=== PATIENT | male | born 1975 | race Caucasian/White ===

== ENCOUNTER 2020-12-25 05:57 | Observation (INO) | payer BC, OTHER ==
[~2020-12-25] VITALS: Ht 175.3 cm; Wt 109.6 kg
[2020-12-25] MEDS ORDERED: NS 1,000 ML IV ONE ×2 (06:25→09:25)
[2020-12-25] MEDS ORDERED: ONDANSETRON 4MG/2ML VIAL IV ONE ×2 (06:25→10:55)
[2020-12-25] MEDS ORDERED: KETOROLAC 30 MG/ML 1ML VIAL IV ONE (06:25)
[2020-12-25 06:53] LABS: BASO % 0.2 % (0.0-1.0); EOS # 0.2 10^3/uL (0.0-0.5); EOS % 1.6 % (0.0-3.0); HEMATOCRIT 43.7 % (42.0-52.0); HEMOGLOBIN 14.3 g/dl (13.5-17.5); LYMPH # 1.8 10^3/uL (1.5-5.0); LYMPH % 18.9 % (24.0-44.0); MEAN CORPUSCULAR HEMOGLOBIN 28.3 pg (27.0-33.0); MEAN CORPUSCULAR HGB CONC 32.7 g/dl (32.0-36.5); MEAN CORPUSCULAR VOLUME 86.5 fl (80.0-96.0); MONO # 0.9 10^3/uL (0.0-0.8); MONO % 9.6 % (2.0-8.0); NEUTROPHILS # 6.6 10^3/uL (1.5-8.5); NEUTROPHILS % 69.4 % (36.0-66.0); PLATELET COUNT, AUTOMATED 251 10^3/uL (150-450); RED BLOOD COUNT 5.05 10^6/uL (4.30-6.10); WHITE BLOOD COUNT 9.5 10^3/uL (4.0-10.0)
--- NOTE | 2020-12-25 07:10 | REPVR ---
PROCEDURE INFORMATION: Exam: CT Abdomen And Pelvis Without Contrast Exam date and time: 12/25/2020 6:22 AM Age: 45 years old Clinical indication: Abdominal pain; Flank; Right; Additional info: R flank pain TECHNIQUE: Imaging protocol: Computed tomography of the abdomen and pelvis without contrast. Radiation optimization: All CT scans at this facility use at least one of these dose optimization techniques: automated exposure control; mA and/or kV adjustment per patient size (includes targeted exams where dose is matched to clinical indication); or iterative reconstruction. COMPARISON: No relevant prior studies available. FINDINGS: Liver: Normal. No mass. Gallbladder and bile ducts: Normal. No calcified stones. No ductal dilation. Pancreas: Normal. No ductal dilation. Spleen: Normal. No splenomegaly. Adrenal glands: Normal. No mass. Kidneys and ureters: There is 5-6 mm right UPJ obstructing stone with mild proximal hydronephrosis. There is 3 mm left renal stone and a punctate 1 mm left upper renal pole stone. There is no left ureteral stone or hydronephrosis. Stomach and bowel: Unremarkable. No obstruction. No mucosal thickening. Appendix: No evidence of appendicitis. Intraperitoneal space: Unremarkable. No free air. No significant fluid collection. Vasculature: Unremarkable. No abdominal aortic aneurysm. Lymph nodes: Unremarkable. No enlarged lymph nodes. Urinary bladder: The urinary bladder is collapsed limiting its evaluation. Reproductive: Unremarkable as visualized. Bones/joints: Unremarkable. No acute fracture. Soft tissues: There is small left inguinal fat containing hernia. IMPRESSION: 1. 5-6 mm right UPJ obstructing stone with mild proximal hydronephrosis. 2. Nonobstructing left nephrolithiasis. 3. Small left inguinal fat containing hernia. Electronically signed by: Angel Luo On 12/25/2020 07:09:28 AM
[2020-12-25 07:12] LABS: ALBUMIN 3.7 GM/DL (3.2-5.2); ALT/SGPT 74 U/L (12-78); BILIRUBIN,DIRECT 0.1 MG/DL (0.0-0.2); BILIRUBIN,TOTAL 0.3 MG/DL (0.2-1.0); BLOOD UREA NITROGEN 15 MG/DL (7-18); CALCIUM LEVEL 8.5 MG/DL (8.5-10.1); CARBON DIOXIDE LEVEL 28 MEQ/L (21-32); CHLORIDE LEVEL 102 MEQ/L (98-107); CREATININE FOR GFR 1.18 MG/DL (0.70-1.30); GLOMERULAR FILTRATION RATE > 60.0 (>60); GLUCOSE, FASTING 217 MG/DL (70-100); LIPASE 97 U/L (73-393); SODIUM LEVEL 137 MEQ/L (136-145); TOTAL PROTEIN 7.5 GM/DL (6.4-8.2)
[2020-12-25] MEDS ORDERED: MORPHINE 4 MG/ML 1ML VIAL/SYRINGE (J2270) IV ONE ×2 (07:25→10:55)
[2020-12-25] MEDS ORDERED: METOCLOPRAMIDE INJ 10MG/2ML VIAL (J2765 PER 1) IV ONE (07:55)
[2020-12-25] MEDS ORDERED: fentaNYL 100 MCG/2 ML INJECTION (J3010) IV ONE (09:25)
[2020-12-25 11:27] LABS: RSV AMPLIFICATION NEGATIVE (NEGATIVE)
[2020-12-25] MEDS ORDERED: IBUP1TAB6 PO (11:34)
[2020-12-25] MEDS ORDERED: CYCL-707 PO (11:34)
[2020-12-25] MEDS ORDERED: NS 1,000 ML IV SCH (12:20)
[2020-12-25] MEDS ORDERED: GLUCOSE 4GM CHEW TABLET PO PRN (13:20)
[2020-12-25] MEDS ORDERED: GLUCAGON INJ 1MG VIAL SC PRN (13:20)
[2020-12-25] MEDS ORDERED: DEXTROSE 50% 50 ML SYRINGE IV PRN (13:20)
--- NOTE | 2020-12-25 13:33 | HPEPDOC ---
[facility] Medical History & Physical Date of Admission Dec 25, 2020 Date of Service: Dec 25, 2020 Attending Physician: JOSSELYN DONG MD History and Physical CHIEF COMPLAINT: Right flank pain HISTORY OF PRESENT ILLNESS: Patient is a 45 year old male with a past medical history significant for nephrolithiasis otherwise no known significant past medical history who presented to the [facility] ER with complaint of right flank pain. Patient stated that yesterday he was shopping at the mall in [place]. He had eaten some [employer] and while walking around the mall had developed some pressure feeling in his back. He then walked to his car and started to drive back to [place]. He stated that he then had worsening cramping feeling in his right flank. He pulled over in [place] and got out of his car to walk around. He stated that helped the pain. He noticed some kids playing basketball and joined in. He stated that the pain was essentially gone until around 0400hrs. He stated that he awoke from sleep with a sharp ache in his right side. He developed nausea and vomiting as well. There was no position that really made his pain worse. He denied any difficulty with urination. He denied any blood in his urine. He presented to the ED for further evaluation In the ED the patient was vitally stable although hypertensive. He stated that he was in pain and was given Fentanyl, Morphine, and Toradol. He received CT imaging of the abdomen and pelvis which demonstrated a 5-6mm right UPJ obstructing stone with mild hydronephrosis. Imaging and report were reviewed. Urology was contacted through the ER and the patient was scheduled for OR at 1800hrs. Patient was admitted to hospitalist service for further evaluation and management PAST MEDICAL HISTORY: 1. Nephrolithiasis 2. IBS PAST SURGICAL HISTORY: 1. Right inguinal hernia repair 2. Right great toe toenail removal 3. Colonoscopy in 2006 for IBS SOCIAL HISTORY: Lives at home with his mom whom he helps care for. He is independent with ADLs. He is a non-smoker although states he may smoke a ciagarette during social situations. He uses alcohol socially. He denies IV or illicit drug use FAMILY HISTORY: Patient is adopted. He has 7-8 siblings from his biological parents. He is unsure of their medical history but states all are alive ALLERGIES: Please see below. REVIEW OF SYSTEMS: CONSTITUTIONAL: Denies fevers, chills, unintentional weight loss or weight gain. Denies night sweats HEENT: Denies dysphagia, odynophagia CARDIOVASCULAR: Denies chest pain, palpitations, or feelings of the heart racing RESPIRATORY: Denies shortness of breath. Denies cough GASTROINTESTINAL: Denies abdominal pain. Admits to right flank pain. Denies d iarrhea or constipation. Admits to nausea and vomiting GENITOURINARY: Denies dysuria or increased frequency. Denies hematuria SKIN: Denies rashes or lesions MUSCULOSKELETAL: Admits to right flank pain. Denies any back or neck pain NEUROLOGICAL: Denies changes in gait or speech PSYCHIATRIC: Denies depression or anxiety ENDOCRINE: Denies heat intolerance, cold intolerance. Denies history of diabetes HEMATOLOGIC/LYMPHATIC: Denies easy bruising or bleeding. Denies history of DVT or PE HOME MEDICATIONS: Please see below. PHYSICAL EXAMINATION: VITAL SIGNS: Temperature 98.3, pulse 65, respiratory rate 20, blood pressure 154/86, pulse oximetry 98% on room air. GENERAL APPEARANCE: Awake, alert, and oriented. Appears in no acute distress. Lying comfortably in bed although intermittently in colicky pain. Appears in no acute distress HEENT: Atraumatic, normocephalic. Eyes are nonicteric. Trachea is midline. Mucous membranes are pink and moist CARDIOVASCULAR: Normal S1. S2. Regular rate and rhythm. No clicks rubs or murmurs LUNGS: Clear vesicular breath sounds bilaterally. No wheezes, rhonchi, or rales. Symmetric chest expansion. ABDOMEN: Soft, nondistended. Nontender. Normoactive bowel sounds throughout EXTREMITIES: No edema. Full and equal pulses in bilateral upper and lower extremities NEUROLOGICAL: No focal neurological deficits PSYCHIATRIC: Mood and affect appear appropriate LABORATORY DATA: See below. IMAGING: PROCEDURE INFORMATION: Exam: CT Abdomen And Pelvis Without Contrast Exam date and time: 12/25/2020 6:22 AM Age: 45 years old Clinical indication: Abdominal pain; Flank; Right; Additional info: R flank pain TECHNIQUE: Imaging protocol: Computed tomography of the abdomen and pelvis without contrast. Radiation optimization: All CT scans at this facility use at least one of these dose optimization techniques: automated exposure control; mA and/or kV adjustment per patient size (includes targeted exams where dose is matched to clinical indication); or iterative reconstruction. COMPARISON: No relevant prior studies available. FINDINGS: Liver: Normal. No mass. Gallbladder and bile ducts: Normal. No calcified stones. No ductal dilation. Pancreas: Normal. No ductal dilation. Spleen: Normal. No splenomegaly. Adrenal glands: Normal. No mass. Kidneys and ureters: There is 5-6 mm right UPJ obstructing stone with mild proximal hydronephrosis. There is 3 mm left renal stone and a punctate 1 mm left upper renal pole stone. There is no left ureteral stone or hydronephrosis. Stomach and bowel: Unremarkable. No obstruction. No mucosal thickening. Appendix: No evidence of appendicitis. Intraperitoneal space: Unremarkable. No free air. No significant fluid collection. Vasculature: Unremarkable. No abdominal aortic aneurysm. Lymph nodes: Unremarkable. No enlarged lymph nodes. Urinary bladder: The urinary bladder is collapsed limiting its evaluation. Reproductive: Unremarkable as visualized. Bones/joints: Unremarkable. No acute fracture. Soft tissues: There is small left inguinal fat containing hernia. IMPRESSION: 1. 5-6 mm right UPJ obstructing stone with mild proximal hydronephrosis. 2. Nonobstructing left nephrolithiasis. 3. Small left inguinal fat containing hernia. Electronically signed by: Angel Luo On 12/25/2020 07:09:28 AM MICROBIOLOGY: Please see below. ASSESSMENT: Patient is a 45 year old male with a past medical history significant for nephrolithiasis who is otherwise healthy and presented to the [facility] ER with complaint of right flank pain. CT imaging demonstrated a right 5-6 m m UPJ obstructing stone with mild hydronephrosis. Urology was contacted through ED and patient was scheduled in OR . PLAN: 1. Right UPJ Stone -Patient presenting with right flank pain. CT imaging demonstrating a right obstructing UPJ stone measuring 5-6 mm. U/A demonstrating microscopic hematuria. -Urology contacted through ED. Plan for lithotripsy today. Patient scheduled in OR at 1800hrs. -Patient denies any history of CLEO or issues with anesthesia in the past. He can achieve over 4METs. He is otherwise medically optimized for his procedure at this point -Remain NPO for test procedure. Will resume diet after patients procedure. Finger sticks q6h until transitioned to diet at which point FS can be discontinued -Will start morphine IV for pain management. Zofran for nausea and vomiting -Will continue IV fluids 2. Elevated BP -Patient denies history of hypertension although unclear if he actually follows with a primary care provider. -Likely secondary to pain. Patient is receiving IV morphine. He is planned to go to OR and will likely receive anesthetics. Will hold off on treating BP directly at this point 3. DVT prophylaxis -TEDs and Sequentials now. Heparin SQ once procedure is finished Disposition: OR today at 1800; NPO for now and continued pain control. Likely discharge tomorrow morning Vital Signs Vital Signs Date Time Temp Pulse Resp B/P (MAP) Pulse Ox O2 Delivery O2 Flow Rate FiO2 12/25/20 11:11 16 96 Room Air 12/25/20 07:52 98 12/25/20 07:23 98.3 65 154/86 (108) Laboratory Data Labs 24H Laboratory Tests 2 12/25/20 06:23: Immature Granulocyte % (Auto) 0.3, Neutrophils (%) (Auto) 69.4H, Lymphocytes (%) (Auto) 18.9L, Monocytes (%) (Auto) 9.6H, Eosinophils (%) (Auto) 1.6, Basophils (%) (Auto) 0.2, Neutrophils # (Auto) 6.6, Lymphocytes # (Auto) 1.8, Monocytes # (Auto) 0.9H, Eosinophils # (Auto) 0.2, Basophils # (Auto) 0.0, Nucleated Red Blood Cells % (auto) 0.0, Anion Gap 7L, Glomerular Filtration Rate > 60.0, Calci um Level 8.5, Total Bilirubin 0.3, Direct Bilirubin 0.1, Aspartate Amino Transf (AST/SGOT) 31, Alanine Aminotransferase (ALT/SGPT) 74, Alkaline Phosphatase 125H, Total Protein 7.5, Albumin 3.7, Albumin/Globulin Ratio 1.0, Lipase 97 12/25/20 06:29: Urine Color YELLOW, Urine Appearance CLOUDYH, Urine pH 5.0, Urine Specific Mary D 1.024, Urine Protein 2+H, Urine Glucose (UA) NEGATIVE, Urine Ketones NEGATIVE, Urine Blood 3+H, Urine Nitrite NEGATIVE, Urine Bilirubin NEGATIVE, Ur ine Urobilinogen 0.2, Urine Leukocyte Esterase NEGATIVE, Urine WBC (Auto) 1, Urine RBC (Auto) TNTCH, Urine Hyaline Casts (Auto) 0, Urine Bacteria (Auto) NEGATIVE, Urine Squamous Epithelial Cells 0, Urine Mucus (Auto) SMALL, Urine Yeast-Like Cells (Auto) SMALLH, Urine Sperm (Auto) 12/25/20 09:35: Coronavirus (COVID-19)(PCR) NEGATIVE, Influenza Type A (RT-PCR) NEGATIVE, Influenza Type B (RT-PCR) NEGATIVE, Respiratory Syncytial Virus (PCR) NEGATIVE CBC/BMP Laboratory Tests 12/25/20 06:23 Home Medications Scheduled PRN Cyclobenzaprine HCl (Cyclobenzaprine HCl) 10 Mg Tablet, 10 MG PO TID PRN for MUSCLE SPASMS Ibuprofen (Ibuprofen) 600 Mg Tablet, 600 MG PO Q6H PRN for PAIN Allergies Coded Allergies: bupropion (Verified Allergy, Intermediate, 12/25/20) clindamycin (Verified Allergy, Intermediate, 12/25/20) codeine (Verified Adverse Reaction, Mild, VOMITTING, 12/25/20) A-FIB/CHADSVASC A-FIB History Current/History of A-Fib/PAF?: No GME ATTESTATION GME ATTESTATION My faculty preceptor for this patient encounter was physically present during the encounter and was fully available. All aspects of the patient interview, examination, medical decision making process, and medical care plan development were reviewed and approved by the faculty preceptor. The faculty preceptor is aware and concurs with the plan as stated in the body of this note and will attest to such by his/her cosignature. TESFAYE CISNEROS DO Dec 25, 2020 13:33
--- NOTE | 2020-12-25 16:12 | SMCUROLCON ---
Urology Consultation General Date of Consultation 12/25/20 Reason For Consultation This patient is seen for Jreteropelvis Junction Obstruction. History of Present Illness This is a 45 y/o M w/ a PMH significant for IBS and kidney stones who presented to the ER this morning w/ severe R flank pain and nausea. A CT obtained in the ER was notable for moderate R hydronephrosis 2/2 an obstructing 6mm R UPJ stone. Despite multiple doses of IV pain medication in the ER, the patient's pain has not been controlled. He was therefore admitted for pain control w/ the plan to take him to the OR today for treatment. He denies dysuria or hematuria. He denies f/c/ns. He has passed a kidney stone previously but has never required surgery. Past Medical History Medical History see HPI Surgical Hstory R inguinal hernia repair Medications Current Medications Current Medications Medications (Trade) Dose Ordered Sig/Cass Route PRN Reason Start Time Stop Time Status Last Admin Dose Admin Dextrose (Dextrose 50%) 25 ml ASDIRECTED PRN IV SEE LABEL COMMENTS 12/25/20 13:20 Glucagon (Glucagon) 1 mg ASDIRECTED PRN SC SEE LABEL COMMENTS 12/25/20 13:20 Glucose (Glucose) 16 GM ASDIRECTED PRN PO SEE LABEL COMMENTS 12/25/20 13:20 Home Med (Med Rec Complete!) ASDIRECTED XX 12/25/20 11:35 12/25/20 11:35 DC Morphine Sulfate (Morphine Sulfate Inj) 3 mg Q3HP PRN IV SEVERE PAIN (PS 8-10) 12/25/20 12:20 Ondansetron HCl (ZOFRAN INJection) 4 mg Q6HP PRN IV NAUSEA OR VOMITING 12/25/20 12:20 Sodium Chloride 1,000 ml @ 70 mls/hr [id number] IV 12/25/20 12:20 12/25/20 13:39 Allergies Allergies: Coded Allergies: bupropion (Verified Allergy, Intermediate, 12/25/20) clindamycin (Verified Allergy, Intermediate, 12/25/20) codeine (Verified Adverse Reaction, Mild, VOMITTING, 12/25/20) Review of Systems Constitutional: Denies: Fever, Chills, Sweats, Weakness, Malaise, Other Skin: Denies: Rash, Lesions, Breakdown, Nail Changes Pulmonary: Denies: Dyspnea, Cough Cardiovascular: Denies Chest Pain, Denies Palpitations Gastrointestinal: Reports: Nausea; Denies: Vomiting Genitourinary: Denies: Dysuria, Frequency, Incontinence, Hematuria Musculoskeletal: Reports: Back Pain (R flank pain) Neurological: Denies: Weakness, Numbness, Incoordination, Change in Speech Psych: Reports: Mood Normal Physical Examination General Exam: Alert, Cooperative, No Acute Distress Chest Exam: Normal air movement Heart Exam: Rate Normal Abdomen Exam: Soft Skin Exam: Nl turgor and temperature Neuro Exam: Normal Speech Psych Exam: Mental status NL, Mood NL Vital Signs/I&O Vital Signs Date Time Temp Pulse Resp B/P (MAP) Pulse Ox O2 Delivery O2 Flow Rate FiO2 12/25/20 13:30 97.8 60 16 131/86 (101) 95 Room Air 12/25/20 07:52 98 Laboratory Data 24H Labs Laboratory Tests 2 12/25/20 06:23: Immature Granulocyte % (Auto) 0.3, Neutrophils (%) (Auto) 69.4H, Lymphocytes (%) (Auto) 18.9L, Monocytes (%) (Auto) 9.6H, Eosinophils (%) (Auto) 1.6, Basophils (%) (Auto) 0.2, Neutrophils # (Auto) 6.6, Lymphocytes # (Auto) 1.8, Monocytes # (Auto) 0.9H, Eosinophils # (Auto) 0.2, Basophils # (Auto) 0.0, Nucleated Red Blood Cells % (auto) 0.0, Anion Gap 7L, Glomerular Filtration Rate > 60.0, Calcium Level 8.5, Total Bilirubin 0.3, Direct Bilirubin 0.1, Aspartate Amino Tr ansf (AST/SGOT) 31, Alanine Aminotransferase (ALT/SGPT) 74, Alkaline Phosphatase 125H, Total Protein 7.5, Albumin 3.7, Albumin/Globulin Ratio 1.0, Lipase 97 12/25/20 06:29: Urine Color YELLOW, Urine Appearance CLOUDYH, Urine pH 5.0, Urine Specific Clarissa 1.024, Urine Protein 2+H, Urine Glucose (UA) NEGATIVE, Urine Ketones NEGATIVE, Urine Blood 3+H, Urine Nitrite NEGATIVE, Urine Bilirubin NEGATIVE, Urine Urobilinogen 0.2, Urine Leukocyte Esterase NEGATIVE, Urine WBC (Auto) 1, Urine RBC (Auto) TNTCH, Urine Hyaline Casts (Auto) 0, Urine Bacteria (Auto) NEGATIVE, Urine Squamous Epithelial Cells 0, Urine Mucus (Auto) SMALL, Urine Yeast-Like Cells (Auto) SMALLH, Urine Sperm (Auto) 12/25/20 09:35: Coronavirus (COVID-19)(PCR) NEGATIVE, Influenza Type A (RT-PCR) NEGATIVE, Influenza Type B (RT-PCR) NEGATIVE, Respiratory Syncytial Virus (PCR) NEGATIVE CBC/BMP Laboratory Tests 12/25/20 06:23 Assessment This is a 45 y/o M w/ intractable pain 2/2 an obstructing 6mm R UPJ stone. I recommended that we take him to the OR today for a cystoscopy, R ureteroscopy w/ laser lithotripsy, and R ureteral stent placement. After a discussion of the risks and benefits of surgery, informed consent was signed. Plan - informed consent signed for cystoscopy, R ureteroscopy w/ laser lithotripsy, and R ureteral stent placement - ancef OCOR - NPO - ok to discharge home postop if patient's pain is better controlled JULI PRATHER MD Dec 25, 2020 14:57
[2020-12-25] MEDS ORDERED: ceFAZolin SOD 2 GM in IV 1 EA IV ONE (16:15)
[2020-12-25] MEDS ORDERED: fentaNYL 100 MCG/2 ML INJECTION (J3010) As Ordered ONE (16:55)
[2020-12-25] MEDS ORDERED: MIDAZOLAM INJ 2MG/2ML VIAL (J2250 PER 1MG) As Ordered ONE (16:55)
[2020-12-25] MEDS ORDERED: LIDOCAINE 2% 100MG/5ML SDV (FOR ANES.) As Ordered ONE (16:55)
[2020-12-25] MEDS ORDERED: propofoL 200 MG/20 ML VIAL As Ordered ONE (16:55)
[2020-12-25] MEDS ORDERED: CONRAY-60 60% 50ML VIAL (Q9961) As Ordered ONE (17:02)
[2020-12-25] MEDS ORDERED: ceFAZolin 2 GM/D5W 50 ML IV BAG (J0690 PER 500MG) As Ordered ONE (17:32)
[2020-12-25] MEDS ORDERED: ONDANSETRON 4MG/2ML VIAL As Ordered ONE (17:40)
[2020-12-25] MEDS ORDERED: dexameTHASONE 4 MG/ML 1ML VIAL (J1100 PER 1MG) As Ordered ONE (17:40)
[2020-12-25] MEDS ORDERED: KETOROLAC 60MG 2ML VIAL As Ordered ONE (17:40)
--- NOTE | 2020-12-25 18:55 | REP ---
INDICATION: RIGHT STONE. COMPARISON: None. TECHNIQUE: Two C-arm views abdomen and pelvis. FINDINGS: There is placement of right ureteral stent. The proximal end is coiled in the region the right renal pelvis and the distal end is coiled in the region of the urinary bladder. Contrast partially opacifies the right pelvocaliceal system. IMPRESSION: 57 seconds of fluoroscopy time was utilized. <Electronically signed by Giovanni Gregorio > 12/25/20 [id number]
[2020-12-25] MEDS ORDERED: oxyCODONE 5MG TAB PO PRN (19:15)
[2020-12-25] MEDS ORDERED: LR 1,000 ML IV SCH (19:15)
[2020-12-25] MEDS ORDERED: oxyBUTYnin 5 MG TAB PO STA (19:18)
[2020-12-25] MEDS ORDERED: PERCOCET 5MG/325MG TAB PO PRN (19:20)
[2020-12-25] MEDS ORDERED: ACETAMINOPHEN TAB 650MG DOSE (2X325MG) PO PRN (19:20)
[2020-12-25] MEDS: fentaNYL 100 MCG/2 ML INJECTION (J3010) IV PRN ×2 (19:29→19:34)
[2020-12-25 20:20] VITALS: BP 138/88
[2020-12-25] MEDS: MORPHINE 4 MG/ML 1ML VIAL/SYRINGE (J2270) IV PRN (20:35)
[2020-12-25] MEDS: ONDANSETRON 4MG/2ML VIAL IV PRN (20:35)
[2020-12-25 21:50] VITALS: BP 140/90
[2020-12-25 22:50] VITALS: BP 139/89
[2020-12-25 23:50] VITALS: BP 157/92
[2020-12-26 00:50] VITALS: BP 144/88
[2020-12-26] MEDS: MORPHINE 4 MG/ML 1ML VIAL/SYRINGE (J2270) IV PRN (05:23)
[2020-12-26] MEDS: ONDANSETRON 4MG/2ML VIAL IV PRN (05:23)
[2020-12-26 06:00] VITALS: BP 166/90
[2020-12-26 06:49] LABS: HEMOGLOBIN 13.2 g/dl (13.5-17.5); MEAN CORPUSCULAR HEMOGLOBIN 28.5 pg (27.0-33.0); MEAN CORPUSCULAR VOLUME 86.4 fl (80.0-96.0); PLATELET COUNT, AUTOMATED 272 10^3/uL (150-450); RED BLOOD COUNT 4.63 10^6/uL (4.30-6.10); WHITE BLOOD COUNT 16.6 10^3/uL (4.0-10.0)
[2020-12-26 07:12] LABS: CALCIUM LEVEL 8.3 MG/DL (8.5-10.1); CREATININE FOR GFR 1.66 MG/DL (0.70-1.30); GLOMERULAR FILTRATION RATE 47.5 (>60); POTASSIUM SERUM 4.6 MEQ/L (3.5-5.1)
[2020-12-26] MEDS ORDERED: NS 1,000 ML IV SCH (07:20)
[2020-12-26] MEDS ORDERED: oxyBUTYnin 5 MG TAB PO PRN (09:10)
--- NOTE | 2020-12-26 09:23 | IPNPDOC ---
Subjective Review oF Systems Chief Complaint The patient is a 45-year-old male admitted with a reason for visit of Jreteropelvis Junction Obstruction. Events since Last Encounter Patient notes his R flank pain is better. He is mainly bothered by suprapubic pressure that is worsened w/ voiding. Denies n/v. No f/c/ns. Objective Physical Examination General Exam: Alert, Cooperative, No Acute Distress ABDOMEN EXAM: Soft; No: Tenderness Skin Exam: Nl turgor and temperature Neuro Exam: Normal Speech Psych Exam: Mental status NL, Mood NL Vital Signs/I&O Vital Signs Date Time Temp Pulse Resp B/P (MAP) Pulse Ox O2 Delivery O2 Flow Rate FiO2 12/26/20 06:00 97.5 65 15 166/90 (115) 94 Room Air 12/26/20 01:12 1.0 12/25/20 19:34 98 I&O- Last 24 Hours up to 6 AM 12/26/20 06:00 Intake Total 4080 ml Output Total 590 ml Balance 3490 ml Laboratory Data Labs 24H Laboratory Tests 2 12/25/20 09:35: Coronavirus (COVID-19)(PCR) NEGATIVE, Influenza Type A (RT-PCR) NEGATIVE, Influenza Type B (RT-PCR) NEGATIVE, Respiratory Syncytial Virus (PCR) NEGATIVE 12/25/20 18:01: 12/26/20 06:08: Nucleated Red Blood Cells % (auto) 0.0, Anion Gap 7L, Glomerular Filtration Rate 47.5L, Calcium Level 8.3L CBC/BMP Laboratory Tests 12/26/20 06:08 Assessment/Plan Date Seen The patient was seen on 12/26/20. Patient Summary This is a 45 y/o M POD1 s/p cysto, R ureteroscopy w/ laser lithotripsy and basket extraction of stones, R ureteral balloon dilation, and R ureteral stent placement. His main complaint this morning is suprapubic pressure, likely 2/2 bladder spasms. Plan/VTE VTE Prophylaxis Ordered?: Yes VTE Exclusion Mechanical Proph: N/A:VTE Prophy Ordered Plan - oxybutynin ordered to be taken prn bladder spasms - patient's stent will need to be kept in for 3-4 wks given the ureteral balloon dilation needed for his surgery - my office will call the patient to arrange f/u in 3-4 wks to take his stent out JULI PRATHER MD Dec 26, 2020 09:22
[2020-12-26 09:55] LABS: HEMOGLOBIN A1c 6.6 %
[2020-12-26] MEDS ORDERED: OXYB5TAB10 PO (11:16)
[2020-12-26] MEDS ORDERED: PERCOCET PO (11:16)
--- NOTE | 2020-12-26 12:07 | RO ---
OPERATIVE NOTE DATE OF OPERATION: 12/25/2020 PREOPERATIVE DIAGNOSIS: Right kidney stone. POSTOPERATIVE DIAGNOSIS: Right kidney stone. PROCEDURE: Cystoscopy, right ureteroscopy with laser lithotripsy and basket extraction of stone, right ureteral balloon dilation, right retrograde pyelogram with intraop interpretation of images, right ureteral stent placement. SURGEON: Gurdeep Starks MD MAPPING SPECIALIST: None. ANESTHESIA: General. OPERATIVE INDICATIONS: This is a 45-year-old male who was found to have an obstructing 6 mm right ureteropelvic junction stone. He was brought to the operating room today for treatment. DESCRIPTION OF PROCEDURE: The patient was brought to the operating room and general anesthesia was induced. Prophylactic antibiotics were infused. He was placed in the dorsal lithotomy position and prepped and draped in usual sterile fashion. Rigid cystoscope was inserted in the urethral meatus and advanced to the bladder. Guidewire was advanced up the right collecting system. I then advanced ureteral access sheath up the right collecting system. I then went up the access sheath with flexible ureteroscope and then of note in the proximal ureter the ureter was very narrow. I could not get ureteroscope all the way in to the kidney because of narrowing. Retrograde pyelogram was performed and confirmed the narrowing in proximal ureter. I then utilized a balloon dilator to dilate the narrow area of the ureter in several locations. Once this was done the balloon dilator was let down and I then went back in with flexible ureteroscope and of note it was still very tight but I was able to get the scope into the kidney. Inside the kidney a 6 mm stone was seen. I then grasped the stone with the basket and tried to pull it down the ureter and of note it would not come all the way down the ureter. I therefore utilized the laser to fragment the stone into smaller pieces and then all the stone fragments were removed using a basket. Once that was done I removed the ureteroscope along with access sheath and no additional stones were seen. I then utilized the guidewire to advance the 6-Somali x 22-32 cm JJ ureteral stent up the right collecting system. The wire was removed and there were adequate curls of the stent in the right renal pelvis and in the bladder. The bladder was emptied of all fluids and this marked the conclusion of the procedure. The patient was taken out of the dorsal lithotomy position, awakened from anesthesia and transported to the recovery room in stable condition. ESTIMATED BLOOD LOSS: 5 mL. COMPLICATIONS: None. SPECIMEN: Kidney stone fragments. PLAN: The patient can be discharged home this evening if his pain is better controlled. His stent will need to be left in for at least 3-4 weeks to give time for his ureters to heal from dilation. I will take the stent out in the office. HEIDI
--- NOTE | 2020-12-26 17:22 | DS.PDOC ---
Discharge Summary General Date of Admission Dec 25, 2020 at 05:58 Date of Discharge 12/26/20 Primary Care Physician: HYUN SABILLON DO Attending Physician: JOSSELYN DONG MD Specialist/Consultants Involve: JULI PRATHER MD Discharge Summary PROCEDURES PERFORMED DURING STAY: Cystoscopy, right ureteroscopy with laser lithotripsy and basket extraction of stone, right ureteral balloon dilation, right retrograde pyelogram with intraoperative interpretation of images, right ureteral stent placement ADMITTING DIAGNOSES: 1. Right UPJ stone 2. Right mild hydronephrosis 3. Elevated blood pressure DISCHARGE DIAGNOSES: 1. Right UPJ stone 2. Right mild hydronephrosis 3. Elevated blood pressure 4. Acute kidney injury COMPLICATIONS/CHIEF COMPLAINT: Ureteropelvis Junction Obstruction. HISTORY OF PRESENT ILLNESS: Patient is a 45 year old male with a past medical history significant for nephrolithiasis otherwise no known significant past medical history who presented to the [facility] ER with complaint of right flank pain. Patient stated that he was shopping at the mall in [place]. He had eaten some [employer] and while walking around the mall had developed some pressure feeling in his back. He then walked to his car and started to drive back to [place]. He stated that he then had worsening cramping feeling in his right flank. He pul led over in [place] and got out of his car to walk around. He stated that helped the pain. He noticed some kids playing basketball and joined in. He stated that the pain was essentially gone until around 0400hrs. He stated that he awoke from sleep with a sharp ache in his right side. He developed nausea and vomiting as well. There was no position that really made his pain worse. He denied any diff iculty with urination. He denied any blood in his urine. He presented to the ED for further evaluation In the ED the patient was vitally stable although hypertensive. He stated that he was in pain and was given Fentanyl, Morphine, and Toradol. He received CT imaging of the abdomen and pelvis which demonstrated a 5-6mm right UPJ obstructing stone with mild hydronephrosis. Imaging and report were reviewed. Urology was contacted through the ER and the patient was scheduled for OR. Patient was admitted to hospitalist service for further evaluation and management HOSPITAL COURSE: During the course patient's hospitalization, he was seen by urology and sent to the OR for a cystoscopy, right ureteroscopy with laser lithotripsy and basket extraction of stone, right ureteral balloon dilation, r ight retrograde pyelogram with intraoperative interpretation of images, right ureteral stent placement. Patient procedure went well. He was kept overnight for pain control. In the morning the patient felt well. However, on lab for examination. He did have an elevation in his creatinine. However, this elevation in creatinine as expected given his recent obstructing UPJ stone causing hydronephrosis. Additionally, the patient stated that he had been taking ibuprofen. He has been given with 3 L of IV fluids since admission. Likely cause of his acute kidney injury is from his hydronephrosis from obstructing UPJ stone in addition to using ibuprofen. Patient was given the option to either stay in [facility] with repeat labs in the morning to ensure that the acute kidney injury resolves or to be discharged with follow-up with his PCP with repeat labs to check his creatinine. Patient stated that he would like to go home. He understands that he needs to stay well-hydrated. Patient was instructed to avoid ibuprofen and take Tylenol as needed for pain. Additionally, during the patient's hospital course he was noted to be hypertensive. This may been to pain. Although the patient does not follow with primary care physician typically. Recommended following up with a primary care physician for recheck of his blood pressure. Elevated he may be started on blood pressure medication. Additionally, the patient was noted to have elevated glucose levels. A hemoglobin A1c was checked which was 6.6. On discharge, the patient was recommended to stay hydrated and avoid any nephrotoxic agents. He was instructed to follow-up with his primary care physician for repeat BMP to ensure acute kidney injury has resolved. Additionally, the patient will need follow-up on his blood pressure check to ens ure he is not hypertensive. If so, he will need to be started on blood pressure medication. Patient had voiced understanding. DISCHARGE MEDICATIONS: Please see below. ALLERGIES: Please see below. PHYSICAL EXAMINATION ON DISCHARGE: VITAL SIGNS: Please see below. GENERAL: Alert, oriented, lying comfortably in bed, appears no acute distress HEENT:. Atraumatic, normocephalic. Eyes nonicteric. Trachea is midline. Mucous members are pink and moist NECK:. No palpable cervical, axillary, or supraclavicular lymphadenopathy CARDIOVASCULAR EXAMINATION: Normal S1, S2, regular rate and rhythm. No clicks rubs or murmurs RESPIRATORY EXAMINATION:. Clear vesicular breath sounds bilaterally. Good respiratory effort. No wheezes rhonchi or rales ABDOMINAL EXAMINATION:. Soft nondistended, nontender. Normoactive bowel sounds throughout EXTREMITIES:. No edema. Full and equal pulses in bilateral lower extremities SKIN: No rashes or lesions NEUROLOGICAL EXAMINATION:. No focal neurological deficits PSYCHIATRIC EXAMINATION:. Mood and affect appear appropriate LABORATORY DATA: Please see below. IMAGING: PROCEDURE INFORMATION: Exam: CT Abdomen And Pelvis Without Contrast Exam date and time: 12/25/2020 6:22 AM Age: 45 years old Clinical indication: Abdominal pain; Flank; Right; Additional info: R flank pain TECHNIQUE: Imaging protocol: Computed tomography of the abdomen and pelvis without contrast. Radiation optimization: All CT scans at this facility use at least one of these dose optimization techniques: automated exposure control; mA and/or kV adjustment per patient size (includes targeted exams where dose is matched to clinical indication); or iterative reconstruction. COMPARISON: No relevant prior studies available. FINDINGS: Liver: Normal. No mass. Gallbladder and bile ducts: Normal. No calcified stones. No ductal dilation. Pancreas: Normal. No ductal dilation. Spleen: Normal. No splenomegaly. Adrenal glands: Normal. No mass. Kidneys and ureters: There is 5-6 mm right UPJ obstructing stone with mild proximal hydronephrosis. There is 3 mm left renal stone and a punctate 1 mm left upper renal pole stone. There is no left ureteral stone or hydronephrosis. Stomach and bowel: Unremarkable. No obstruction. No mucosal thickening. Appendix: No evidence of appendicitis. Intraperitoneal space: Unremarkable. No free air. No significant fluid collection. Vasculature: Unremarkable. No abdominal aortic aneurysm. Lymph nodes: Unremarkable. No enlarged lymph nodes. Urinary bladder: The urinary bladder is collapsed limiting its evaluation. Reproductive: Unremarkable as visualized. Bones/joints: Unremarkable. No acute fracture. Soft tissues: There is small left inguinal fat containing hernia. IMPRESSION: 1. 5-6 mm right UPJ obstructing stone with mild proximal hydronephrosis. 2. Nonobstructing left nephrolithiasis. 3. Small left inguinal fat containing hernia. Electronically signed by: Angel Luo On 12/25/2020 07:09:28 AM INDICATION: RIGHT STONE. COMPARISON: None. TECHNIQUE: Two C-arm views abdomen and pelvis. FINDINGS: There is placement of right ureteral stent. The proximal end is coiled in the region the right renal pelvis and the distal end is coiled in the region of the urinary bladder. Contrast partially opacifies the right pelvocaliceal system. IMPRESSION: 57 seconds of fluoroscopy time was utilized. <Electronically signed by Giovanni Gregorio > 12/25/20 6233 PROGNOSIS: Good ACTIVITY: [As tolerated]. DIET: Consistent carbohydrate DISCHARGE PLAN: Patient be discharged home. He was recommended to stay hydrated and avoid ibuprofen and other nephrotoxic agents. Patient was sent Percocet 6 pills. He is instructed to take Tylenol as needed for additional pain control. He was recommended to follow with his primary care physician for repeat BMP to assure resolution of his ADRIAN. Patient is to follow-up with urology to have his stent removed in approximately 3-4 weeks. DISPOSITION: 01 Home, Self-Care. DISCHARGE INSTRUCTIONS: 1. Followed by care physician in 7-10 days for repeat BMP and management of elevated blood pressure 2. Follow-up with urology for ureteral stent removal in 3-4 weeks 3. Take Tylenol as needed for pain. Take Percocet as needed for additional pain management 4. Avoid ibuprofen and other nephrotoxic agents. DISCHARGE CONDITION: [Stable]. TIME SPENT ON DISCHARGE: Greater than 40 minutes. Vital Signs/I&Os Vital Signs Date Time Temp Pulse Resp B/P (MAP) Pulse Ox O2 Delivery O2 Flow Rate FiO2 12/26/20 06:00 97.5 65 15 166/90 (115) 94 Room Air 12/26/20 01:12 1.0 12/25/20 19:34 98 I&O- Last 24 Hours up to 6 AM 12/26/20 05:59 Intake Total 3720 ml Output Total 590 ml Balance 3130 ml Laboratory Data Labs 24H Laboratory Tests 2 12/25/20 18:01: 12/26/20 06:08: Nucleated Red Blood Cells % (auto) 0.0, Anion Gap 7L, Glomerular Filtration Rate 47.5L, Estimated Mean Plasma Glucose 143H, Hemoglobin A1c 6.6, Calcium Level 8 .3L CBC/BMP Laboratory Tests 12/26/20 06:08 Discharge Medications Scheduled PRN Oxybutynin Chloride (Oxybutynin Chloride) 5 Mg Tablet, 5 MG PO TIDP PRN for BLADDER SPASM Oxycodone/Acetaminophen (Oxycodone-Acetaminophen 5-325) 1 Each Tablet, 1 TAB PO Q12HP PRN for MODERATE/SEVERE PAIN (PS 5-10) Allergies Coded Allergies: bupropion (Verified Allergy, Intermediate, 12/25/20) clindamycin (Verified Allergy, Intermediate, 12/25/20) codeine (Verified Adverse Reaction, Mild, VOMITTING, 12/25/20) TESFAYE CISNEROS DO Dec 26, 2020 17:22
== END 2020-12-26 12:45 | disposition home or self-care (01) ==
LOC: M ED 05:57 → M ED INP 05:58 → ENRESERV 12:46 → M MSPAV 13:50
PROVIDERS: ADMIT Internal Medicine; ATTEND Internal Medicine
DX: N20.0 Calculus of kidney (principal); N13.39 Other hydronephrosis; N35.911 Unspecified urethral stricture, male, meatal; R03.0 Elevated blood-pressure reading, without diagnosis of hypertension; R11.2 Nausea with vomiting, unspecified; N17.8 Other acute kidney failure; K40.90 Unilateral inguinal hernia, without obstruction or gangrene, not specified as recurrent; K58.9 Irritable bowel syndrome, unspecified; Z87.442 Personal history of urinary calculi; K21.9 Gastro-esophageal reflux disease without esophagitis; E66.9 Obesity, unspecified; Z68.35 Body mass index [BMI] 35.0-35.9, adult; Z88.1 Allergy status to other antibiotic agents; Z88.8 Allergy status to other drugs, medicaments and biological substances; Z88.5 Allergy status to narcotic agent; Z79.899 Other long term (current) drug therapy
CPT/HCPCS: 36415; 52341; 52356; 74176; 74420; 80048; 80076; 81001; 82365; 83036; 83690; 85025; 85027; 87631; 88300; 96361; 96374; 96375; 96376; 99285; C1769; C1894; C2617; J0690; J1100; J1885; J2250; J2270; J2405; J2765; J3010; Q9961

== ENCOUNTER → 2020-12-31 | Outpatient (CLI) | payer OTHER ==
[~2020-12-31] MED LIST: CYCL-707 PO; IBUP1TAB6 PO; OXYB5TAB10 PO; PERCOCET PO
[2020-12-31 11:22] LABS: BASO % 0.1 % (0.0-1.0); EOS # 0.1 10^3/uL (0.0-0.5); EOS % 0.7 % (0.0-3.0); HEMATOCRIT 42.2 % (42.0-52.0); HEMOGLOBIN 14.1 g/dl (13.5-17.5); LYMPH # 1.5 10^3/uL (1.5-5.0); LYMPH % 9.9 % (24.0-44.0); MEAN CORPUSCULAR HEMOGLOBIN 28.3 pg (27.0-33.0); MEAN CORPUSCULAR HGB CONC 33.4 g/dl (32.0-36.5); MEAN CORPUSCULAR VOLUME 84.7 fl (80.0-96.0); MONO # 1.4 10^3/uL (0.0-0.8); MONO % 9.7 % (2.0-8.0); NEUTROPHILS # 11.7 10^3/uL (1.5-8.5); NEUTROPHILS % 79.1 % (36.0-66.0); PLATELET COUNT, AUTOMATED 381 10^3/uL (150-450); RED BLOOD COUNT 4.98 10^6/uL (4.30-6.10); WHITE BLOOD COUNT 14.8 10^3/uL (4.0-10.0)
[2020-12-31 11:43] LABS: BLOOD UREA NITROGEN 17 MG/DL (7-18); CALCIUM LEVEL 8.9 MG/DL (8.5-10.1); CARBON DIOXIDE LEVEL 27 MEQ/L (21-32); CHLORIDE LEVEL 103 MEQ/L (98-107); CREATININE FOR GFR 1.04 MG/DL (0.70-1.30); GLOMERULAR FILTRATION RATE > 60.0 (>60); GLUCOSE, FASTING 158 MG/DL (70-100); POTASSIUM SERUM 4.3 MEQ/L (3.5-5.1); SODIUM LEVEL 137 MEQ/L (136-145)
== END ==
LOC: M LAB 10:20
PROVIDERS: ATTEND Family Medicine
DX: N17.9 Acute kidney failure, unspecified (principal)